=== PATIENT | female | born 1970 | race Caucasian/White ===

== ENCOUNTER 2019-07-03 08:07 | Day surgery (SDC) | payer BC ==
[2019-07-02 13:15] VITALS: BMI 21.2
[2019-07-03 09:58] VITALS: TEMP 97.9
[2019-07-03 12:36] VITALS: BP 101/76; PULSE 67
--- NOTE | 2019-07-05 15:01 | PATH ---
Surgical Pathology Report Patient Name: IRMA MARS [facility]. Rec. #: [id number] /Age/Gender: 1970 (Age: 49) / F Account: [id number] Location: [facility]-ENDOSCOPY Taken: 07/03/2019 Received: 07/03/2019 Reported: 07/05/2019 Physicians: Cristina Bahena M.D. Specimen(s) Received A: 2ND PORTION AND DUODENAL BULB B: GASTRIC ANTRAL POLYPS C: PREVIOUS POLYPECTOMY SITE D: GE JUNCTION Clinical History Screening colonoscopy, family history of adenomatous polyps, history of breast cancer, history of gastric polyp Postoperative diagnosis: Antral polyps, small hiatal hernia, normal colon Final Diagnosis A. SECOND PORTION AND BULB OF DUODENUM, BIOPSY: DUODENUM MUCOSA WITH NO SIGNIFICANT PATHOLOGIC CHANGE. NO HISTOLOGIC EVIDENCE OF CELIAC DISEASE. B. GASTRIC ANTRAL POLYPS, BIOPSY: POLYPOID GASTRIC MUCOSA WITH CHRONIC GASTRITIS. IMMUNOSTAIN FOR H. PYLORI IS NEGATIVE. NEGATIVE FOR INTESTINAL METAPLASIA. C. PREVIOUS POLYPECTOMY SITE, BIOPSY: GASTRIC MUCOSA WITH MILD CHRONIC GASTRITIS. IMMUNOSTAIN FOR H. PYLORI IS NEGATIVE. NEGATIVE FOR INTESTINAL METAPLASIA. HYPERPIGMENTED MACROPHAGES (TATOO) SEEN IN THE STROMA, CONSISTENT WITH PRIOR BIOPSY SITE. D. GE JUNCTION, BIOPSY: ESOPHAGEAL MUCOSA WITH REFLUX ESOPHAGITIS, MILD. NEGATIVE FOR INTESTINAL METAPLASIA. Electronically Signed Jone Burris M.D. Gross Description A. Received in formalin, labeled "second portion and bulb of duodenum biopsy" are 3 gaming, irregular portions of soft tissue ranging from 0.3-0.5 cm. in greatest dimension. The specimens are submitted in toto in one cassette. B. Received in formalin, labeled "gastric antral polyps biopsy" are 7 gaming, irregular portions of soft tissue ranging from 0.2-0.4 cm. in greatest dimension. The specimens are submitted in toto in one cassette. C. Received in formalin, labeled "previous polypectomy site biopsy" are 2 gaming, irregular portions of soft tissue averaging 0.3 cm. in greatest dimension. The specimens are submitted in toto in one cassette. D. Received in formalin, labeled "GE junction biopsy" are 3 gaming, irregular portions of soft tissue ranging from 0.1-0.4 cm. in greatest dimension. The specimens are submitted in toto in one cassette. DL/07/03/201916/2019
== END 2019-07-03 11:40 | disposition home or self-care (01) ==
LOC: JASU-ENDO 08:07
PROVIDERS: ATTEND Internal Medicine Gastroenterology
PROC: 0DB48ZX Excision of Esophagogastric Junction, Via Natural or Artificial Opening Endoscopic, Diagnostic (ICD-10-PCS; 2019-07-03)
PROC: 0DB68ZX Excision of Stomach, Via Natural or Artificial Opening Endoscopic, Diagnostic (ICD-10-PCS; 2019-07-03)
PROC: 0DJD8ZZ Inspection of Lower Intestinal Tract, Via Natural or Artificial Opening Endoscopic (ICD-10-PCS; principal; 2019-07-03 08:45)
DX: Z51.11 Encounter for antineoplastic chemotherapy (principal); K64.8 Other hemorrhoids; K21.9 Gastro-esophageal reflux disease without esophagitis; K44.9 Diaphragmatic hernia without obstruction or gangrene; K31.7 Polyp of stomach and duodenum; Z83.71 Family history of colonic polyps
CPT/HCPCS: 43239; G0105; 84703; 88305-TC; 88342-TC

== ENCOUNTER 2022-12-28 04:17 | Day surgery (SDC) | payer OTHER ==
[2022-12-26 13:47] VITALS: BMI 24.0
[2022-12-28 07:27] VITALS: TEMP 97.7
[2022-12-28 09:36] VITALS: BP 111/62; PULSE 66; RESP 14
== END 2022-12-28 09:45 | disposition home or self-care (01) ==
LOC: JASU-ENDO 04:17
PROVIDERS: ATTEND Internal Medicine Gastroenterology
PROC: 0DB98ZX Excision of Duodenum, Via Natural or Artificial Opening Endoscopic, Diagnostic (ICD-10-PCS; 2022-12-28)
PROC: 0DB78ZX Excision of Stomach, Pylorus, Via Natural or Artificial Opening Endoscopic, Diagnostic (ICD-10-PCS; 2022-12-28)
PROC: 0DB48ZX Excision of Esophagogastric Junction, Via Natural or Artificial Opening Endoscopic, Diagnostic (ICD-10-PCS; 2022-12-28)
PROC: 0DJD8ZZ Inspection of Lower Intestinal Tract, Via Natural or Artificial Opening Endoscopic (ICD-10-PCS; principal; 2022-12-28 08:00)
DX: Z12.11 Encounter for screening for malignant neoplasm of colon (principal); K64.8 Other hemorrhoids; K21.00 Gastro-esophageal reflux disease with esophagitis, without bleeding; K44.9 Diaphragmatic hernia without obstruction or gangrene; K29.50 Unspecified chronic gastritis without bleeding; Z83.71 Family history of colonic polyps
CPT/HCPCS: 43239; G0105; 88305-TC; 88342-TC